=== PATIENT | female | born 1975 | race Caucasian/White ===

== ENCOUNTER → 2016-12-25 | Outpatient (CLI) | payer OTHER ==
[~2016-12-25] MED LIST: ACETAMINOPHEN PO; CIPRO PO; DETROL LA PO; DIOVAN HCT 160/1 TAB PO; DIOVAN HCT 320/1 TA2 PO; DIOVAN PO; DITROPAN PO; EXCEDRIN MIGRAINE PO; FLEXERIL10 M1 PO; LEVAQUIN PO; LORATADINE PO; LORTAB 5/500 TA1 TA2 PO; LORTAB 7.5-5001 TAB PO; MAXZIDE-25 MG1 UDTAB PO; METOPROLOL PO; NAPROSYN500 MG PO; PERCOLONE5 MG PO; PROTONIX PO; SERTRALINE HCL100 MG PO; SERTRALINE HCL25 M2 PO; TYLOX 5/500 CAP1 CAP PO; WALGREEN'S PHARMACY
--- NOTE | ~2016-12-25 | MY29 ---
[facility] A Service of [facility] RADIOLOGY TEXT RESULTS PATIENT: RHONA SHERMAN LOCATION: [facility] : 73 UNIT #: [id number] AGE: [address]: Bari Kelly MD SEX: F ORDER DR: [id number] [facility] [address] [place], [place] [address] [id number] O MR#: [id number] Acc #: [id number] NAME: RHONA SHERMAN : 1975 SEX: F STUDY DATE/TIME: 12/25/2016 15:41 UNIT: [facility] ROOM: STUDY DESCRIPTION: MY NEELAM SCREENING W/ CAD BILAT Attending Physician: Bari Kelly M.D. Referring Physician: Bari Kelly M.D. Ordering Physician: Bari Kelly M.D. Primary Care Physician: Kamran Yee M.D. MEDICAL IMAGING REPORT This report is preliminary unless electronic signature is present EXAM Digital screening mammogram, 12/25/2016 HISTORY 41-year-old woman positive family history, mother age 70, sister age 45. Annual screening. COMPARISON Mammograms date to 09/04/2005 with most recent 09/06/2014. FINDINGS Digital imaging of each breast was completed utilizing screening protocol. Review includes FDA-approved CAD device. Breast parenchyma is heterogeneous and again dominant in the left breast. Overall appearance is stable. I see no interval occurring breast mass. There are faint scattered punctate microcalcifications identified in the left breast. These are stable and non-suspicious. I see no focal architectural disturbance. IMPRESSION Stable benign mammogram. Annual screening recommended. Patients over the age of 40 are entered into a reminder system with target due date for the next mammogram. A result letter will also be sent to the patient. BIRADS: 2 Benign Finding Dictated by... Sudhir Cruz M.D. THIS IS AN ELECTRONICALLY VERIFIED REPORT Sudhir Cruz M.D. at 12/26/2016 1:44 PM [facility] A Service of [facility] RADIOLOGY TEXT RESULTS PATIENT: RHONA SHERMAN LOCATION: [facility] : 73 UNIT #: [id number] AGE: [address]: Bari Kelly MD SEX: F ORDER DR: VAHID/ruby TD: 12/26/2016 12:20 JOB #: [id number] MEDICAL IMAGING REPORT Page 1 of 1 COPY
== END | disposition home or self-care (01) ==
LOC: CWCC 15:15
DX: Z12.31 Encounter for screening mammogram for malignant neoplasm of breast (principal); Z80.3 Family history of malignant neoplasm of breast
CPT/HCPCS: G0202